=== PATIENT | male | born 1965 | race Caucasian/White ===

== ENCOUNTER 2023-04-16 07:17 | Day surgery (SDC) | payer MEDICARE, MEDICAID ==
[2023-04-09 13:25] LABS: PRE OP HEMOGLOBIN 15.7 g/dL (14.0-17.9)
[2023-04-09 13:31] LABS: BASOPHILS # (AUTO) 0.1 X10'3 (0-0.2); BASOPHILS % (AUTO) 1.1 % (0-1); EOSINOPHILS # (AUTO) 0.1 X10'3 (0-0.9); EOSINOPHILS % (AUTO) 1.3 % (0-6); LYMPHOCYTES # (AUTO) 1.7 X10'3 (1.1-4.8); LYMPHOCYTES % (AUTO) 24.1 % (21-51); MEAN CORPUSCULAR HEMOGLOBIN 29.2 PG (27.0-31.0); MEAN CORPUSCULAR HGB CONC 33.2 g/dL (33.0-36.5); MEAN CORPUSCULAR VOLUME 87.8 FL (78-98); MEAN PLATELET VOLUME 7.9 FL (7.4-10.4); MONOCYTES # (AUTO) 0.5 X10'3 (0-0.9); MONOCYTES % (AUTO) 7.3 % (2-12); NEUTROPHILS # (AUTO) 4.6 X10'3 (1.8-7.7); NEUTROPHILS % (AUTO) 66.2 % (42-75); PRE OP HEMATOCRIT 47.2 % (42.0-52.0); PRE OP PLATELET COUNT 302 X10'3 (140-440); RED BLOOD COUNT 5.38 X10'6 (4.70-6.10); RED CELL DISTRIBUTION WIDTH 14.8 % (11.5-14.5)
[2023-04-09 13:41] LABS: ALKALINE PHOSPHATASE 67 IU/L (46-116); BLOOD UREA NITROGEN 13 MG/DL (7-18); BUN/CREATININE RATIO 10.2 (10.0-20.0); CALCIUM 9.2 MG/DL (8.5-10.1); CHLORIDE 104 MMOL/L (99-107); CREATININE 1.27 MG/DL (0.60-1.10); PRE OP ALT 37 U/L (30-65); PRE OP ANION GAP 10 (8-16); PRE OP AST 18 U/L (10-37); PRE OP BILIRUB, TOTAL 0.5 MG/DL (0.0-1.0); PRE OP GLUCOSE 108 MG/DL (70-104); PRE OP POTASSIUM 3.8 MMOL/L (3.4-5.1); PRE OP SODIUM 141 MMOL/L (135-145); TOTAL CARBON DIOXIDE 27.3 MMOL/L (24-32); eGFR 58 ML/MIN
[~2023-04-16] VITALS: Ht 175.3 cm; Wt 111.0 kg
[~2023-04-16 07:17] MED LIST: ALLO100T PO; AMLO-708 PO; BUPIVAcaine/PF 2.5mg/ml (0.25%) 10ml vial ONE; OMEP40CA21 PO; clindamycin 600mg/D5W 50ml 50 ML IV ONE; famotidine 20mg tablet PO ONE; ringers solution, lacted 1,000 ML IV SCH
[2023-04-16] MEDS ORDERED: LIDOcaine 0.5% (5mg/ml) 50ml vial ONE (07:27)
[2023-04-16] MEDS ORDERED: proCHLORperazine 10 MG/2 ml inj IV PRN (08:20)
[2023-04-16] MEDS ORDERED: ondansetron/PF 4mg/2ml inj IV PRN (08:20)
[2023-04-16] MEDS ORDERED: morphine 2 MG/ML inj. syringe IV PRN (08:20)
[2023-04-16] MEDS ORDERED: ringers solution, lacted 1,000 ML IV SCH (08:20)
[2023-04-16] MEDS ORDERED: meperidine/PF 25mg/ml syringe IV PRN ×3 (08:20)
[2023-04-16] MEDS ORDERED: morphine 4 MG/ML inj SYRINge IV PRN (08:20)
[2023-04-16 10:00] VITALS: BP 135/78
[2023-04-16] MEDS ORDERED: fentaNYL/PF 50MCG/1 ML 2ML syringe ONE (10:11)
[2023-04-16] MEDS ORDERED: midazolam 1 mg/ML 2ml injection ONE (10:11)
[2023-04-16] MEDS ORDERED: propofol inj 20 ML IV ONE (10:36)
[2023-04-16 10:40] VITALS: BP 105/69
--- NOTE | 2023-04-16 10:43 | NUR ---
Received from OR via [facility] , accompanied by Anesthesiologist SERGEY and report given by Anesthesiolgist. PATIENT WITH 20G PIV IN RIGHT UE RUNNING LR AT 100. DENIES PAIN, CONWAY. FINGERS ALL PWD WITH + CAP REFILL PATIENT WITH BIASD DRESSING TO LEFT HAND THAT IS CDI. DENIES PAIN. Addendum: 04/16/23 at 1050 by Grant Salazar RN, RN Amended: Links added.
[2023-04-16 10:50] VITALS: BP 103/63
[2023-04-16 11:00] VITALS: BP 105/68
--- NOTE | 2023-04-16 11:10 | NUR ---
ABLE TO SAFELY AMBULATE AND TRANSFER SELF. IV TAKEN OUT WITHOUT ANY COMPLICATIONS. ALL DISCHARGE INSTRUCTIONS COVERED WITH PATIENT AND ALL QUESTIONS ANSWERED. PATIENT TAKEN OUT VIA WHEELCHAIR TO PERSONAL VEHICLE WHERE FAMILY/FRIEND DROVE PATIENT HOME. Addendum: 04/16/23 at 1112 by Grant Salazar RN, RN Amended: Links added.
== END 2023-04-16 11:10 | disposition home or self-care (01) ==
LOC: PAS 07:17
PROVIDERS: ATTEND Orthopaedic Surgery Hand Surgery
DX: G56.02 Carpal tunnel syndrome, left upper limb (principal); M65.322 Trigger finger, left index finger; I10 Essential (primary) hypertension; G47.30 Sleep apnea, unspecified; F12.90 Cannabis use, unspecified, uncomplicated; F31.9 Bipolar disorder, unspecified; M10.9 Gout, unspecified; K21.9 Gastro-esophageal reflux disease without esophagitis; Z88.0 Allergy status to penicillin; Z79.899 Other long term (current) drug therapy; Z87.891 Personal history of nicotine dependence; Z72.89 Other problems related to lifestyle
CPT/HCPCS: 26055; 36415; 64721; 80053; 82948; 85025; 93005; J2250; J2704; J3010; J3490; J7030; J7120; Z7506; Z7512; A4215

== ENCOUNTER 2023-06-14 06:50 | Day surgery (SDC) | payer MEDICARE, MEDICAID ==
[2023-06-09 15:23] LABS: BASOPHILS # (AUTO) 0.1 X10'3 (0-0.2); EOSINOPHILS # (AUTO) 0.1 X10'3 (0-0.9); EOSINOPHILS % (AUTO) 0.9 % (0-6); LYMPHOCYTES # (AUTO) 1.6 X10'3 (1.1-4.8); LYMPHOCYTES % (AUTO) 20.6 % (21-51); MEAN CORPUSCULAR HEMOGLOBIN 29.6 PG (27.0-31.0); MEAN CORPUSCULAR HGB CONC 33.5 g/dL (33.0-36.5); MEAN CORPUSCULAR VOLUME 88.4 FL (78-98); MONOCYTES # (AUTO) 0.6 X10'3 (0-0.9); MONOCYTES % (AUTO) 7.6 % (2-12); NEUTROPHILS # (AUTO) 5.4 X10'3 (1.8-7.7); NEUTROPHILS % (AUTO) 69.9 % (42-75); PRE OP HEMATOCRIT 45.7 % (42.0-52.0); PRE OP HEMOGLOBIN 15.3 g/dL (14.0-17.9); PRE OP PLATELET COUNT 277 X10'3 (140-440); PRE OP WHITE BLOOD COUNT 7.7 10'3 (4.8-10.8); RED BLOOD COUNT 5.17 X10'6 (4.70-6.10); RED CELL DISTRIBUTION WIDTH 14.7 % (11.5-14.5)
[2023-06-09 15:38] LABS: ALBUMIN 3.8 G/DL (3.4-5.0); ALKALINE PHOSPHATASE 68 IU/L (46-116); BLOOD UREA NITROGEN 16 MG/DL (7-18); BUN/CREATININE RATIO 13.6 (10.0-20.0); CHLORIDE 104 MMOL/L (99-107); CREATININE 1.18 MG/DL (0.60-1.10); PRE OP ALT 57 U/L (30-65); PRE OP ANION GAP 9 (8-16); PRE OP AST 27 U/L (10-37); PRE OP BILIRUB, TOTAL 0.4 MG/DL (0.0-1.0); PRE OP GLUCOSE 111 MG/DL (70-104); PRE OP POTASSIUM 3.4 MMOL/L (3.4-5.1); PRE OP SODIUM 141 MMOL/L (135-145); TOTAL CARBON DIOXIDE 28.5 MMOL/L (24-32); TOTAL PROTEIN 7.6 G/DL (6.4-8.2); eGFR 63 ML/MIN
[~2023-06-14] VITALS: Ht 172.7 cm; Wt 113.3 kg
[~2023-06-14 06:50] MED LIST changes: -BUPIVAcaine/PF 2.5mg/ml (0.25%) 10ml vial ONE; +CHOL20002 PO; -clindamycin 600mg/D5W 50ml 50 ML IV ONE; +clindamycin-Cleocin 900mg/D5W 50 ML IV ONE
[2023-06-14 07:20] VITALS: BP 139/75; PULSE 56; RESP 16; TEMP 98.9; O2SAT 95
[2023-06-14] MEDS ORDERED: BUPIVAcaine/PF 2.5mg/ml (0.25%) 10ml vial ONE (11:47)
[2023-06-14] MEDS ORDERED: propofol 10mg/ml 20ml vial IV ONE (12:04)
[2023-06-14] MEDS ORDERED: fentaNYL/PF 50MCG/1 ML 2ML syringe ONE (12:07)
[2023-06-14] MEDS ORDERED: midazolam 1 mg/ML 2ml injection ONE ×2 (12:07→12:15)
[2023-06-14] MEDS ORDERED: BUPIVAcaine/PF 2.5mg/ml (0.25%) 10ml vial IJ ONE (12:27)
[2023-06-14 12:35] VITALS: BP 106/87; PULSE 67; RESP 15; O2SAT 96
--- NOTE | 2023-06-14 12:35 | NUR ---
Received from OR via B[facility], accompanied by Anesthesiologist and report given by Anesthesiologist. PATIENT WAKING UP, NO S/S OF PAIN, V/S WNL, SCD ON, 20G TO LUE, RIGHT WRIST DRESSING CDI W/ SLING. ICE AND ELEVATED RUE.
[2023-06-14 12:45] VITALS: BP 113/81; PULSE 65; RESP 14; O2SAT 97
[2023-06-14 12:55] VITALS: BP 109/79; PULSE 63; RESP 15; O2SAT 96
[2023-06-14 13:05] VITALS: BP 111/74; PULSE 65; RESP 15; O2SAT 97
[2023-06-14 13:15] VITALS: BP 112/76; PULSE 68; RESP 15; O2SAT 97
--- NOTE | 2023-06-14 13:15 | NUR ---
PATIENT A&OX4, DENIES PAIN, V/S WNL, SCD OFF, 20G TO LUE D/C, RIGHT WRIST DRESSING CDI W/ SLING. ICE AND ELEVATED RUE. I HAVE REVIEWED D/C INSTRUCTIONS WITH PATIENT INSTRUCTIONS WITH PATIENT AND THEY HAVE VERBALIZED UNDERSTANDING. PATIENT D/C HOME WITH ALL BELONGINGS AND FAMILY TRANSPORTED PATIENT HOME
== END 2023-06-14 13:15 | disposition home or self-care (01) ==
LOC: PAS 06:50
PROVIDERS: ATTEND Orthopaedic Surgery Hand Surgery
DX: G56.01 Carpal tunnel syndrome, right upper limb (principal); M65.341 Trigger finger, right ring finger; M65.331 Trigger finger, right middle finger; G47.33 Obstructive sleep apnea (adult) (pediatric); K21.9 Gastro-esophageal reflux disease without esophagitis; I10 Essential (primary) hypertension; F31.9 Bipolar disorder, unspecified; M10.9 Gout, unspecified; Z88.0 Allergy status to penicillin; Z98.890 Other specified postprocedural states; Z79.899 Other long term (current) drug therapy; Z87.891 Personal history of nicotine dependence; F12.90 Cannabis use, unspecified, uncomplicated; Z72.89 Other problems related to lifestyle
CPT/HCPCS: 26055; 36415; 64721; 80053; 82948; 85025; A6222; J2250; J2704; J3010; J3490; J7030; J7120; Z7506; Z7512; A4215; A6449